=== PATIENT | female | born 1940 | race Caucasian/White ===

== ENCOUNTER 2016-12-15 21:57 | Emergency (ER) | payer MEDICARE ==
[2016-12-15 22:09] VITALS: BP 161/90
--- NOTE | 2016-12-15 22:42 | RAD ---
Indication: RIGHT knee pain post fall. Comparison: October 28, 2014 Technique: AP and crosstable lateral views RIGHT knee. Report: Total knee prosthesis in place without evidence for loosening or periprosthetic fracture. Bone density appears decreased throughout. Negative for fracture within the [id number]. No suggestion of joint effusion. Significant dermal and subcutaneous tissue plane edema anterior to the patella through the proximal to mid diaphysis of the tibia. IMPRESSION: Significant anterior soft tissue swelling without evidence for fracture, prosthesis loosening, articular malalignment, or joint effusion.
--- NOTE | 2016-12-15 23:03 | ED ---
Rodolfo Patino Billy, scribed for Ravinder Wilson MD on 12/15/16 at 2206 . Lower Extremity - HPI Summary HPI Summary: Patient is a 76 y/o female coming to [facility] for evaluation of right knee pain after she had a simple mechanical fall on the ice this evening at 1945. Pain is constant, severity 1/10. Pain worse with movement. Patient had a right knee replacement 5 months ago. - History of Current Complaint Chief Complaint: EDExtremityLower Stated Complaint: FALL//RIGHT KNEE PAIN Time Seen by Provider: 12/15/16 22:02 Hx Obtained From: Patient Mechanism Of Injury: Fall From A Standing Position Onset of Pain: Immediate Onset/Duration: Hours Severity Initially: Moderate Severity Currently: Moderate Pain Intensity: 1 Pain Scale Used: 0-10 Numeric Timing: Constant Location: Is Discrete @ - right knee Associated Signs And Symptoms: Positive: Negative Aggravating Factor(s): Movement Alleviating Factor(s): Rest Able to Bear Weight: Yes - Allergies/Home Medications Allergies/Adverse Reactions: Allergies Allergy/AdvReac Type Severity Reaction Status Date / Time No Known Allergies Allergy Verified 03/29/16 11:08 PMH/Surg Hx/FS Hx/Imm Hx Cardiovascular History: Reports: Hx Hypertension GI History: Reports: Hx Gastroesophageal Reflux Disease Musculoskeletal History: Reports: Hx Arthritis - RIGHT KNEE, LEFT KNEE, BILATERAL HIPS, HANDS, SHOULDERS, Hx Osteoporosis Sensory History: Reports: Hx Contacts or Glasses - WEARS CONTACTS NO GLASSES Denies: Hx Hearing Aid Opthamlomology History: Reports: Hx Contacts or Glasses - WEARS CONTACTS NO GLASSES Neurological History: Denies: Hx Dementia, Hx Seizures Psychiatric History: Reports: Hx Anxiety, Hx Panic Disorder - 42 yrs NO PROBLEMS SINCE - Cancer History Hx Chemotherapy: No Hx Radiation Therapy: No - Surgical History Surgery Procedure, Year, and Place: 1999 LEFT FOOT 5TH METATARSAL WITH PINNING, [facility] [place]. BILATERAL BREAST BIOPSIES X 4 MOST RECENT ONE 2000, 3 AT [facility] [place] AND ONE IN [place], Right knee replacement Hx Anesthesia Reactions: No Infectious Disease History: No Infectious Disease History: Denies: Hx Clostridium Difficile, Hx Hepatitis, Hx Human Immunodeficiency Virus (HIV), Hx Shingles, Hx Tuberculosis, Traveled Outside the [place] in Last 30 Days - Family History Known Family History: Negative: Cardiac Disease - Social History Alcohol Use: None Substance Use Type: Reports: None Smoking Status (MU): Former Smoker Review of Systems Negative: Fever Positive: Arthralgia All Other Systems Reviewed And Are Negative: Yes Physical Exam Triage Information Reviewed: Yes Vital Signs On Initial Exam: Initial Vitals Temp Pulse Resp BP Pulse Ox 98.4 F 86 14 161/90 98 12/15/16 21:59 12/15/16 21:59 12/15/16 21:59 12/15/16 21:59 12/15/16 21:59 Vital Signs Reviewed: Yes Appearance: Positive: No Pain Distress, Thin Skin: Positive: Warm Head/Face: Positive: Normal Head/Face Inspection Eyes: Positive: BLAS ENT: Positive: Hearing grossly normal Neck: Positive: Supple Respiratory/Lung Sounds: Positive: Clear to Auscultation, Breath Sounds Present Cardiovascular: Positive: RRR Abdomen Description: Positive: Nontender, Soft Bowel Sounds: Positive: Present Musculoskeletal: Positive: Other - mild lt knee diffuse swelling. no instability , from Neurological: Positive: Sensory/Motor Intact, Alert, Oriented to Person Place, Time, Normal Gait Diagnostics - Vital Signs Vital Signs Temp Pulse Resp BP Pulse Ox 12/15/16 21:59 98.4 F 86 14 161/90 98 - Laboratory Lab Statement: Any lab studies that have been ordered have been reviewed, and results considered in the medical decision making process. - Radiology Right knee xray Radiology Interpretation Completed By: Radiologist Re-Evaluation - Re-Evaluation First Eval Change: Improved - results d/w pt Lower Extremity Course/Dx - Diagnoses Provider Diagnoses: Knee contusion Discharge - Discharge Plan Condition: Stable Disposition: HOME Patient Education Materials: Knee Pain (ED) Referrals: Neville Abreu MD [Primary Care Provider] - The documentation as recorded by the Rodolfo pak Billy accurately reflects the service I personally performed and the decisions made by , Ravinder Wilson MD.
== END 2016-12-15 23:24 | disposition home or self-care (01) ==
LOC: ED 21:57
DX: S80.01XA Contusion of right knee, initial encounter (principal); M25.561 Pain in right knee; W19.XXXA Unspecified fall, initial encounter; Y93.9 Activity, unspecified; Y92.9 Unspecified place or not applicable; Z87.891 Personal history of nicotine dependence
CPT/HCPCS: 99282

== ENCOUNTER 2017-11-03 00:22 | Emergency (ER) | payer MEDICARE ==
[2017-11-03] MEDS ORDERED: NS 0.9% 1000 ML* 1,000 ML IV ONE (00:47)
[2017-11-03 01:09] LABS: ABS Basophils 0 10^3/ul (0-0.2); ABS Eosinophils 0.1 10^3/ul (0-0.6); ABS Lymphocytes 1.1 10^3/ul (1.0-4.8); ABS Monocytes 0.5 10^3/ul (0-0.8); ABS Neutrophils 3.9 10^3/ul (1.5-7.7); ABS Nucleated RBC 0 10^3/ul; Eosinophil % 1.4 % (0-6); Hematocrit 39 % (35-47); Hemoglobin 13.2 g/dl (12.0-16.0); Lymphocyte % 19.3 % (25-47); Mean Corpuscular HGB Conc 34 g/dl (31-36); Mean Corpuscular Hemoglobin 30 pg (27-31); Mean Corpuscular Volume 87 fL (80-97); Mean Platelet Volume 8 um3 (7.4-10.4); Nucleated Red Blood Cells % 0; Platelet Count 204 10^3/ul (150-450); Red Blood Count 4.43 10^6/ul (4.0-5.4); Red Cell Distribution Width 14 % (10.5-15); White Blood Count 5.6 10^3/ul (3.5-10.8)
[2017-11-03 01:24] LABS: EGFR Non-African American 81.6 (>60)
--- NOTE | 2017-11-03 02:14 | ED ---
Ashlie Patino Jason, leticiaiblevi for Noman Bui MD on 11/03/17 at 0142 . GI/ HPI - HPI Summary HPI Summary: This patient is a 77 year old F BIBA to [facility] with a chief complaint of GI symptoms since 6 weeks ago. The patient states that 6 weeks ago she began to experience Indigestion every 2 of 3 days, and on those days she felt as if she could not. During these 6 weeks she felt she had to belch to remove air form the stomach, and her indigestion began occurring every day. From this, the patient reports losing 7 pounds in 6 weeks. Recently, she has experienced diarrhea that is still present and began 3 days ago. The patient includes taking omeprazole, headache medication, and blood pressure medication. The patient rates the pain 0/10 in severity. Symptoms aggravated by nothing. Symptoms alleviated by nothing. Patient reports light brown stool and decreased appetite. - History of Current Complaint Chief Complaint: EDGeneral Time Seen by Provider: 11/03/17 00:31 Stated Complaint: GENERAL ILLNESS Hx Obtained From: Patient Onset/Duration: Started Weeks Ago - 6 weeks ago, Still Present, Worse Since Timing: Lasting Weeks - since 6 weeks ago Severity: Severe Pain Intensity: 0 Associated Signs and Symptoms: Positive: Weight Loss, Other: - decreased appetite, diarrhea, and light brown stool Aggravating Factor(s): Nothing Alleviating Factor(s): Nothing - Allergy/Home Medications Allergies/Adverse Reactions: Allergies Allergy/AdvReac Type Severity Reaction Status Date / Time No Known Allergies Allergy Verified 03/29/16 11:08 PMH/Surg Hx/FS Hx/Imm Hx Previously Healthy: No Endocrine/Hematology History: Denies: Hx Anticoagulant Therapy, Hx Blood Disorders, Hx Blood Transfusions, Hx Bone Marrow Disease, Hx Diabetes, Hx Systemic Lupus Erythematosus, Hx Sickle Cell Disease, Hx Thyroid Disease, Hx Anemia, Hx Unexplained Bleeding, Other Endocrine/Hematological Disorders Cardiovascular History: Reports: Hx Hypertension Denies: Hx Aneurysm, Hx Angina, Hx Angioplasty, Hx Auto Implanted Cardiovert Defib, Hx Cardiac Arrest, Hx Cardiomegaly, Hx Congenital Heart Disease, Hx Congestive Heart Failure, Hx Coronary Artery Disease, Hx Deep Vein Thrombosis, Hx Hypercholesterolemia, Hx Hypotension, Hx Pacemaker/ICD, Hx Peripheral Vascular Disease, Hx Rheumatic Fever, Hx Syncope, Hx Valvular Heart Disease, Other Cardiovascular Problems/Disorders Respiratory History: Denies: Hx Asthma, Hx Chronic Bronchitis, Hx Chronic Obstructive Pulmonary Disease (COPD), Hx Cystic Fibrosis, Hx Lung Cancer, Hx Pleural Effusion, Hx Pneumonia, Hx Pulmonary Edema, Hx Pulmonary Embolism, Hx Seasonal Allergies, Hx Sleep Apnea, Other Respiratory Problems/Disorders GI History: Reports: Hx Gastroesophageal Reflux Disease Denies: Hx Cirrhosis, Hx Crohn's Disease, Hx Diverticulosis, Hx Gall Bladder Disease, Hx Gastrointestinal Bleed, Hx Hiatal Hernia, Hx Irritable Bowel, Hx Jaundice, Hx Obstructive Bowel, Hx Ileostomy, Hx Pyloric Stenosis, Hx Ulcer, Other GI Disorders History: Denies: Hx Dialysis Musculoskeletal History: Reports: Hx Arthritis - RIGHT KNEE, LEFT KNEE, BILATERAL HIPS, HANDS, SHOULDERS, Hx Osteoporosis Denies: Hx Back Problems, Hx Bursitis, Hx Congenital Bone Abnormalities, Hx Fibromyalgia, Hx Gout, Hx Orthopedic Injury, Hx Scoliosis, Hx Tendonitis, Other Musculoskeletal History Sensory History: Reports: Hx Contacts or Glasses - WEARS CONTACTS NO GLASSES Denies: Hx Hearing Aid Opthamlomology History: Reports: Hx Contacts or Glasses - WEARS CONTACTS NO GLASSES Neurological History: Denies: Hx Dementia, Hx Seizures Psychiatric History: Reports: Hx Anxiety, Hx Panic Disorder - 42 yrs NO PROBLEMS SINCE Denies: Hx Attention Deficit Hyperactivity Disorder, Hx Eating Disorder, Hx Depression, Hx Post Traumatic Stress Disorder, Hx Inpatient Treatment, Hx Community Mental Health Tx, Hx Schizophrenia, Hx Bipolar Disorder, Hx Suicide Attempt, Hx Substance Abuse, Other Psychiatric Issues/Disorders - Cancer History Hx Chemotherapy: No Hx Radiation Therapy: No - Surgical History Surgery Procedure, Year, and Place: 1999 LEFT FOOT 5TH METATARSAL WITH PINNING, [facility] – [place]. BILATERAL BREAST BIOPSIES X 4 MOST RECENT ONE 2000, 3 AT [facility] – [place] AND ONE IN [place], Right knee replacement Hx Anesthesia Reactions: No Infectious Disease History: No Infectious Disease History: Denies: Hx Clostridium Difficile, Hx Hepatitis, Hx Human Immunodeficiency Virus (HIV), Hx Shingles, Hx Tuberculosis, Traveled Outside the [place] in Last 30 Days - Family History Known Family History: Negative: Cardiac Disease, Blood Disorder - Social History Occupation: Retired Alcohol Use: None Substance Use Type: Reports: None Smoking Status (MU): Former Smoker Review of Systems Negative: Fever Positive: Other - decreased appetite, diarrhea, light brown stool, and weight loss All Other Systems Reviewed And Are Negative: Yes Physical Exam - Summary Physical Exam Summary: VITAL SIGNS: Reviewed. GENERAL: ~Patient is a well-developed and nourished female who is lying comfortable in the stretcher. Patient is not in any acute respiratory distress. HEAD AND FACE: No signs of trauma. No ecchymosis, hematomas or skull depressions. No sinus tenderness. EYES: PERRLA, EOMI x 2, No injected conjunctiva, no nystagmus. EARS: Hearing grossly intact. Ear canals and tympanic membranes are within normal limits. MOUTH: Oropharynx within normal limits. NECK: Supple, trachea is midline, no adenopathy, no JVD, no carotid bruit, no c- spine tenderness, neck with full ROM. CHEST: Symmetric, no tenderness at palpation LUNGS: Clear to auscultation bilaterally. No wheezing or crackles. CVS: Regular rate and rhythm, S1 and S2 present, no murmurs or gallops appreciated. ABDOMEN: Soft, non-tender. No signs of distention. No rebound no guarding, and no masses palpated. Bowel sounds are normal. EXTREMITIES: FROM in all major joints, no edema, no cyanosis or clubbing. NEURO: Alert and oriented x 3. No acute neurological deficits. Speech is normal and follows commands. SKIN: Dry and warm Triage Information Reviewed: Yes Vital Signs On Initial Exam: Initial Vitals Temp Pulse Resp BP Pulse Ox 98.6 F 79 14 149/82 97 11/03/17 00:23 11/03/17 00:23 11/03/17 00:23 11/03/17 00:23 11/03/17 00:23 Vital Signs Reviewed: Yes Diagnostics - Vital Signs Vital Signs Temp Pulse Resp BP Pulse Ox 11/03/17 01:32 48 86 11/03/17 00:23 98.6 F 79 14 149/82 97 - Laboratory Lab Results: Lab Results 11/03/17 11/03/17 11/03/17 Range/Units 00:55 00:55 00:55 WBC 5.6 (3.5-10.8) 10^3/ul RBC 4.43 (4.0-5.4) 10^6/ul Hgb 13.2 (12.0-16.0) g/dl Hct 39 (35-47) % MCV 87 (80-97) fL MCH 30 (27-31) pg MCHC 34 (31-36) g/dl RDW 14 (10.5-15) % Plt Count 204 (150-450) 10^3/ul MPV 8 (7.4-10.4) um3 Neut % (Auto) 70.4 (38-83) % Lymph % (Auto) 19.3 L (25-47) % Gates % (Auto) 8.1 (1-9) % Eos % (Auto) 1.4 (0-6) % Baso % (Auto) 0.8 (0-2) % Absolute Neuts (auto) 3.9 (1.5-7.7) 10^3/ul Absolute Lymphs (auto) 1.1 (1.0-4.8) 10^3/ul Absolute Monos (auto) 0.5 (0-0.8) 10^3/ul Absolute Eos (auto) 0.1 (0-0.6) 10^3/ul Absolute Basos (auto) 0 (0-0.2) 10^3/ul Absolute Nucleated RBC 0 10^3/ul Nucleated RBC % 0 APTT 28.0 (26.0-36.3) seconds Sodium 138 (133-145) mmol/L Potassium 3.8 (3.5-5.0) mmol/L Chloride 104 (101-111) mmol/L Carbon Dioxide 27 (22-32) mmol/L Anion Gap 7 (2-11) mmol/L BUN 17 (6-24) mg/dL Creatinine 0.70 (0.51-0.95) mg/dL Est GFR ( Amer) 104.9 (>60) Est GFR (Non-Af Amer) 81.6 (>60) BUN/Creatinine Ratio 24.3 H (8-20) Glucose 127 H (70-100) mg/dL Calcium 10.6 H (8.6-10.3) mg/dL Total Bilirubin 0.30 (0.2-1.0) mg/dL AST 29 (13-39) U/L ALT 26 (7-52) U/L Alkaline Phosphatase 102 (34-104) U/L C-Reactive Protein 8.27 H (< 5.00) mg/L Total Protein 7.0 (6.4-8.9) g/dL Albumin 4.3 (3.2-5.2) g/dL Globulin 2.7 (2-4) g/dL Albumin/Globulin Ratio 1.6 (1-3) Amylase 79 (29-103) U/L Lipase 33 (11.0-82.0) U/L Result Diagrams: 11/03/17 00:55 11/03/17 00:55 Lab Statement: Any lab studies that have been ordered have been reviewed, and results considered in the medical decision making process. GIGU Course/Dx - Course Course Of Treatment: This patient is a 77 year old F BIBA to [facility] with a chief complaint of GI symptoms since 6 weeks ago. The patient states that 6 weeks ago she began to experience Indigestion every 2 of 3 days, and on those days she felt as if she could not. During these 6 weeks she felt she had to belch to remove air form the stomach, and her indigestion began occurring every day. From this, the patient reports losing 7 pounds in 6 weeks. Recently, she has experienced diarrhea that is still present and began 3 days ago. The patient includes taking omeprazole, headache medication, and blood pressure medication. In the ED course the patient was given IV fluids. Patient is resting comfortably. Test results with no significant abnormalities. Assessment/Plan: Patient will be discharged with medication and follow up from GI physician as soon as possible. P was advised to return to [facility] with any new or worsening symptoms. The patient is agreeable with this plan. Dx of epigastric pain and GERD. - Diagnoses Provider Diagnoses: GERD (gastroesophageal reflux disease), Epigastric pain Discharge - Discharge Plan Condition: Stable Disposition: HOME Patient Education Materials: Gastroesophageal Reflux Disease (ED), Epigastric Pain (ED) Referrals: Neville Abreu MD [Primary Care Provider] - Additional Instructions: RETURN TO EMERGENCY DEPARTMENT FOR ANY NEW OR WORSENING SYMPTOMS The documentation as recorded by the Ashlie pak Jason accurately reflects the service I personally performed and the decisions made by , Noman Bui MD.
[2017-11-03 02:42] VITALS: BP 134/76
== END 2017-11-03 02:40 | disposition home or self-care (01) ==
LOC: ED 00:22
DX: K21.9 Gastro-esophageal reflux disease without esophagitis (principal); Z87.891 Personal history of nicotine dependence
CPT/HCPCS: 36415; 80053; 82150; 83690; 85025; 85730; 86140; 96360; 99282

== ENCOUNTER 2018-05-28 12:56 | Emergency (ER) | payer MEDICARE ==
--- NOTE | 2018-05-28 14:40 | ED ---
Complex/Multi-Sys Presentation - HPI Summary HPI Summary: This patient is a 78 year old F presenting to [facility] with a chief complaint of lightheadedness since a few months ago, with intermittent episodes, the worst of which happened today. Pt believes her sx are aggravated by the heat, which is why she has felt sx off and on for the past few months, usually when outside and walking. She endorses SOB, lightheadedness, chest pressure but not pain, mild nausea, and shaking on the inside. She notes her sx persisted for over an hour so she called an ambulance. She notes sx are slightly alleviated now from when she called EMS. PMHx HTN, murmur. - History Of Current Complaint Chief Complaint: EDWeakness Time Seen by Provider: 05/28/18 13:03 Hx Obtained From: Patient Onset/Duration: Sudden Onset, Lasting Hours, Still Present Timing: Intermittent, Lasting:, Minutes, Hours Severity Currently: Mild Severity Initially: Moderate Location: Negative Aggravating Factor(s): Heat, exertion Alleviating Factor(s): none Associated Signs And Symptoms: Positive: Dizziness - lightheadedness, not dizzy , SOB, Nausea, Other - chest pressure. Negative: Chest Pain, Abdominal Pain - Allergies/Home Medications Allergies/Adverse Reactions: Allergies Allergy/AdvReac Type Severity Reaction Status Date / Time No Known Allergies Allergy Verified 11/07/17 12:43 PMH/Surg Hx/FS Hx/Imm Hx Endocrine/Hematology History: Denies: Hx Anticoagulant Therapy, Hx Blood Disorders, Hx Blood Transfusions, Hx Bone Marrow Disease, Hx Diabetes, Hx Systemic Lupus Erythematosus, Hx Sickle Cell Disease, Hx Thyroid Disease, Hx Anemia, Hx Unexplained Bleeding, Other Endocrine/Hematological Disorders Cardiovascular History: Reports: Hx Hypertension - CONTROLLED BY MEDICATION, Other Cardiovascular Problems/Disorders - murmur Denies: Hx Aneurysm, Hx Angina, Hx Angioplasty, Hx Auto Implanted Cardiovert Defib, Hx Cardiac Arrest, Hx Cardiomegaly, Hx Congenital Heart Disease, Hx Congestive Heart Failure, Hx Coronary Artery Disease, Hx Deep Vein Thrombosis, Hx Hypercholesterolemia, Hx Hypotension, Hx Pacemaker/ICD, Hx Peripheral Vascular Disease, Hx Rheumatic Fever, Hx Syncope, Hx Valvular Heart Disease Respiratory History: Denies: Hx Asthma, Hx Chronic Bronchitis, Hx Chronic Obstructive Pulmonary Disease (COPD), Hx Cystic Fibrosis, Hx Lung Cancer, Hx Pleural Effusion, Hx Pneumonia, Hx Pulmonary Edema, Hx Pulmonary Embolism, Hx Seasonal Allergies, Hx Sleep Apnea, Other Respiratory Problems/Disorders GI History: Reports: Hx Gastroesophageal Reflux Disease Denies: Hx Cirrhosis, Hx Crohn's Disease, Hx Diverticulosis, Hx Gall Bladder Disease, Hx Gastrointestinal Bleed, Hx Hiatal Hernia, Hx Irritable Bowel, Hx Jaundice, Hx Obstructive Bowel, Hx Ileostomy, Hx Pyloric Stenosis, Hx Ulcer, Other GI Disorders History: Denies: Hx Dialysis, Hx Renal Disease Musculoskeletal History: Reports: Hx Arthritis - RIGHT KNEE, LEFT KNEE, BILATERAL HIPS, HANDS, SHOULDERS, Hx Osteoporosis Denies: Hx Back Problems, Hx Bursitis, Hx Congenital Bone Abnormalities, Hx Fibromyalgia, Hx Gout, Hx Orthopedic Injury, Hx Scoliosis, Hx Tendonitis, Other Musculoskeletal History Sensory History: Reports: Hx Contacts or Glasses - WEARS CONTACTS NO GLASSES Denies: Hx Deafness, Hx Hearing Aid Opthamlomology History: Reports: Hx Contacts or Glasses - WEARS CONTACTS NO GLASSES EENT History: Denies: Hx Deafness Neurological History: Denies: Hx Dementia, Hx Seizures Psychiatric History: Reports: Hx Anxiety, Hx Panic Disorder - 42 yrs NO PROBLEMS SINCE Denies: Hx Attention Deficit Hyperactivity Disorder, Hx Eating Disorder, Hx Depression, Hx Post Traumatic Stress Disorder, Hx Inpatient Treatment, Hx Community Mental Health Tx, Hx Schizophrenia, Hx Bipolar Disorder, Hx Suicide Attempt, Hx Substance Abuse, Other Psychiatric Issues/Disorders - Cancer History Hx Chemotherapy: No Hx Radiation Therapy: No - Surgical History Surgery Procedure, Year, and Place: INGUINAL HERNIA, RT KNEE REPLACEMENT, LT FOOT Hx Anesthesia Reactions: No Infectious Disease History: No Infectious Disease History: Denies: Hx Clostridium Difficile, Hx Hepatitis, Hx Human Immunodeficiency Virus (HIV), Hx Shingles, Hx Tuberculosis, Traveled Outside the [place] in Last 30 Days - Family History Known Family History: Negative: Cardiac Disease, Blood Disorder - Social History Occupation: Retired Lives: Alone Alcohol Use: None Substance Use Type: Reports: None Smoking Status (MU): Former Smoker Review of Systems Positive: Other - "internal shaking". Negative: Fever Positive: Other - chest pressure, not pain. Negative: Chest Pain Positive: Shortness Of Breath Positive: Nausea. Negative: Abdominal Pain Positive: no symptoms reported Neurological: Other - lightheadedness All Other Systems Reviewed And Are Negative: Yes Physical Exam - Summary Physical Exam Summary: Appearance: The patient is well-nourished in no acute distress and in no acute pain. Skin: The skin is warm and dry and skin color reflects adequate perfusion. HEENT: The head is normocephalic and atraumatic. The pupils are equal and reactive. The conjunctivae are clear and without drainage. Nares are patent and without drainage. Mouth reveals moist mucous membranes and the throat is without erythema and exudate. The external ears are intact. The ear canals are patent and without drainage. The tympanic membranes are intact. Neck: The neck is supple with full range of motion and non-tender. There are no carotid bruits. There is no neck vein distension. Respiratory: Chest is non-tender. Lungs are clear to auscultation and breath sounds are symmetrical and equal. Cardiovascular: Heart is regular rate and rhythm. There is no rub auscultated. There is a soft systolic ejection murmur. There is no peripheral edema and pulses are symmetrical and equal. Abdomen: The abdomen is soft and non-tender. There are normal bowel sounds heard in all four quadrants and there is no organomegaly palpated. Musculoskeletal: There is no back tenderness noted. Extremities are non-tender with full range of motion. There is good capillary refill. There is no peripheral edema or calf tenderness elicited. Neurological: Patient is alert and oriented to person, place and time. The patient has symmetrical motor strength in all four extremities. Cranial nerves are grossly intact. Deep tendon reflexes are symmetrical and equal in all four extremities. Psychiatric: The patient has an appropriate affect and does not exhibit any anxiety or depression. Triage Information Reviewed: Yes Vital Signs On Initial Exam: Initial Vitals Temp Pulse Resp BP Pulse Ox 98.2 F 72 19 154/86 99 05/28/18 13:00 05/28/18 13:00 05/28/18 13:00 05/28/18 13:00 05/28/18 13:00 Vital Signs Reviewed: Yes Diagnostics - Vital Signs Vital Signs Temp Pulse Resp BP Pulse Ox 05/28/18 13:00 98.2 F 72 19 154/86 99 - Laboratory Result Diagrams: 05/28/18 15:35 05/28/18 15:35 Lab Statement: Any lab studies that have been ordered have been reviewed, and results considered in the medical decision making process. - Radiology CXR Xray Interpretation: No Acute Changes Radiology Interpretation Completed By: Radiologist - No active cardiopulmonary disease. Dr. Valentin has reviewed this report. - CT CTA chest/thorax CT Interpretation: Positive (See Comments) CT Interpretation Completed By: Radiologist - 1. No CT of evidence of pulmonary embolism. 2. The very mild degree of groundglass opacification seen throughout the lungs could be seen in the setting of mild pulmonary edema. 3. Additional chronic and degenerative changes described in body the report. - EKG 1516 Cardiac Rate: NL - 68 EKG Rhythm: Sinus Rhythm ST Segment: Normal Ectopy: None EKG Interpretation: No STEMI Re-Evaluation - Re-Evaluation First Eval Re-Evaluation Time: 19:23 Change: Unchanged Comment: discussed (-) imaging, discharge, follow up. Complex Multi-Symp Course/Dx Course Of Treatment: Ms. Kearns presented complaining of an atypical chest pain that's been going on for couple of weeks on and off. She was kept on monitor and worked up with labs including a d-dimer and delayed troponin. A d-dimer was slightly elevated therefore a CTA was obtained which was negative for pulmonary embolism. I think anything dangerous happening I recommended close follow-up this week with her PCP. - Diagnoses Provider Diagnoses: Chest pain Discharge - Sign-Out/Discharge Documenting (check all that apply): Patient Departure - discharge - Discharge Plan Condition: Stable Disposition: HOME Patient Education Materials: Chest Pain (ED) Referrals: Neville Abreu MD [Primary Care Provider] - 3 Days Additional Instructions: Return to the emergency department for any new or worsening symptoms. - Billing Disposition and Condition Condition: STABLE Disposition: Home - Attestation Statements Document Initiated by Leonie: Yes Documenting Scribe: Selvin Bruce Provider For Whom Leonie is Documenting (Include Credential): Dr. Elie Valentin MD Scribe Attestation: ISelvin scribed for Dr. Elie Valentin MD on 05/28/18 at 2149. Scribe Documentation Reviewed: Yes Provider Attestation: The documentation as recorded by the Selvin pak accurately reflects the service I personally performed and the decisions made by me, Dr. Elie Valentin MD
--- NOTE | 2018-05-28 15:25 | RAD ---
HISTORY: CP COMPARISONS: None VIEWS: 1: frontal portable view of the chest at 3:04 PM FINDINGS: LINES AND TUBES: None. CARDIOMEDIASTINAL SILHOUETTE: The cardiomediastinal silhouette is normal for portable technique. PLEURA: The costophrenic angles are sharp. No pleural abnormalities are noted. LUNG PARENCHYMA: The lungs are clear. ABDOMEN: The upper abdomen is clear. There is no subphrenic gas. BONES AND SOFT TISSUES: There is a scoliotic curvature of the spine. There is remote posttraumatic deformity to the left hemithorax. IMPRESSION: NO ACTIVE CARDIOPULMONARY DISEASE.
[2018-05-28 15:41] LABS: ABS Basophils 0 10^3/ul (0-0.2); ABS Eosinophils 0 10^3/ul (0-0.6); ABS Lymphocytes 0.9 10^3/ul (1.0-4.8); ABS Monocytes 0.3 10^3/ul (0-0.8); ABS Neutrophils 6.3 10^3/ul (1.5-7.7); ABS Nucleated RBC 0 10^3/ul; Eosinophil % 0.1 % (0-6); Hematocrit 39 % (35-47); Hemoglobin 13.3 g/dl (12.0-16.0); Mean Corpuscular HGB Conc 34 g/dl (31-36); Mean Corpuscular Hemoglobin 31 pg (27-31); Mean Corpuscular Volume 90 fL (80-97); Mean Platelet Volume 8.1 um3 (7.4-10.4); Nucleated Red Blood Cells % 0; Platelet Count 177 10^3/ul (150-450); Red Blood Count 4.36 10^6/ul (4.00-5.40); Red Cell Distribution Width 15 % (10.5-15); White Blood Count 7.5 10^3/ul (3.5-10.8)
[2018-05-28 15:49] LABS: INR 0.96 (0.77-1.02)
[2018-05-28 15:58] LABS: EGFR Non-African American 75.1 (>60)
[2018-05-28] MEDS ORDERED: Iohexol 350* (CONTRAST) 500 ML MDV IV ONE (17:13)
--- NOTE | 2018-05-28 17:43 | RAD ---
INDICATION: 2 weeks of chest pressure exacerbated during exertion COMPARISON: CTA of the chest dated December 15, 2010 TECHNIQUE: Axial source images were acquired following the administration of intravenously and utilizing CT angiographic technique. Coronal and sagittal reconstructed images were constructed and reviewed. FINDINGS: There there are no filling defects in the pulmonary arteries to indicate acute pulmonary embolic disease. The lungs exhibit very mild groundglass opacification. At the posterior aspect of the left lower lobe there is a partially calcified nodule measuring 4 mm. There are no pulmonary parenchymal masses. The heart is normal in size. There is no evidence of pericardial effusion. There is no evidence of aortic aneurysm or dissection. There is no mediastinal, hilar, or axillary lymphadenopathy. Coarse calcification overlying the left hilar nodes are consistent with chronic granulomas. Degenerative changes of the thoracic spine includes loss of intervertebral disc height as well as dextroconvex curvature of the thoracic spine. The left adrenal gland there is a low-attenuation nodule measuring 2 cm that appears unchanged since the 1710 CT of the chest. IMPRESSION: 1. No CT of evidence of pulmonary embolism. 2. The very mild degree of groundglass opacification seen throughout the lungs could be seen in the setting of mild pulmonary edema. 3. Additional chronic and degenerative changes described in body the report.
[2018-05-28 19:39] VITALS: BP 121/78
== END 2018-05-28 19:38 | disposition home or self-care (01) ==
LOC: ED 12:56
DX: R07.89 Other chest pain (principal); R42 Dizziness and giddiness; R06.02 Shortness of breath; R11.0 Nausea; I10 Essential (primary) hypertension; Z96.651 Presence of right artificial knee joint; Z87.891 Personal history of nicotine dependence
CPT/HCPCS: 36415; 71045; 71275; 80053; 83605; 83880; 84443; 84484; 85025; 85379; 85610; 93005; 99283; Q9967